=== PATIENT | male | born 1955 | race Caucasian/White ===

== ENCOUNTER → 2017-09-16 10:19 | Outpatient (CLI) | payer OTHER, SELFPAY ==
--- NOTE | 2017-09-16 | DI.CT.S_ITS ---
PROCEDURE: CT ABDOMEN PELVIS WO/W CON INDICATIONS: HYDRONEPHROSIS TECHNIQUE: Optional 5 mm thick noncontrast images acquired from the diaphragm to the symphysis pubis. After the administration of intravenous contrast, 5 mm thick images acquired from the diaphragm to the symphysis pubis after a 10-minute delay. 2 mm thick coronal and sagittal reformats were then performed of the kidneys and ureters. For radiation dose reduction, the following was used: automated exposure control, adjustment of mA and/or kV according to patient size. COMPARISON: [facility], CT, ABDOMEN/PELVIS WITH CONTRAST, 06/07/2017, 3:17. [facility], CT, CT ANGIO ABDOMEN PELVIS, 07/13/2017, 13:23. FINDINGS: Image quality: Excellent. Lung bases: Lung bases are clear. Heart size is normal. Atherosclerotic calcifications noted in the visualized coronary vasculature. Urinary system: Severe right-sided hydronephrosis is stable compared to 07/13/2017. Moderate to severe proximal right ureteral dilatation extending to level of the right common iliac aneurysm is stable compared to 07/13/17. Multiloculated fluid collection with enhancing periphery anterior to the lower pole of the right kidney and the proximal right ureter is not significantly changed in size or contour compared to 07/13/17 measuring approximately 7. 0 cm in maximum diameter in the current study of 27.2 cm previously).. No left-sided hydronephrosis. 6 mm nonobstructing stone in the lower pole of the left kidney is stable compared to 07/13/2017. Mild inflammatory stranding adjacent to the right kidney and proximal right ureter is stable in appearance compared to 07/13/17. There is normal bilateral renal enhancement. Bladder wall thickness is normal. No calcified bladder stones. Other solid organs: Liver is normal in size and enhancement. 1.1 cm cyst in the right lobe liver is stable. Gallbladder is within normal limits. Biliary system is non dilated. Pancreas enhances normally. Spleen is normal in size and enhancement. No adrenal nodules. Peritoneum and bowel: Small hiatal hernia noted. Bowel loops demonstrate normal wall thickness and caliber. No free fluid or air. The appendix is normal. Nodes and vessels: No retroperitoneal or mesenteric adenopathy by size criteria. Postprocedural changes compatible of prior aortoiliac stent graft placement redemonstrated. 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 No evidence of aneurysmal luminal opacification to indicate endoleak. Abdominal wall: Supraumbilical ventral midline hernias which contain loops of unremarkable appearing colon and small bowel are stable. Pelvis: No pathologic free pelvic fluid. No inguinal adenopathy. Large right inguinal hernia which contains unremarkable appearing loops of small bowel are stable compared to prior examinations. A small fat-containing left inguinal hernia stable. Bones: No suspicious bony lesions. No vertebral body compression fractures. Spine degenerative disc disease and facet arthropathy. IMPRESSION: 1. Stable examination compared to 07/13/2017. 2. Severe right-sided hydronephrosis related to large right common iliac artery aneurysm is not significantly changed. 3. Multiloculated fluid collection adjacent to the anterior margin of the lower pole the right kidney and the proximal right ureter not significantly changed in size or contour. Finding concerning for contained calyceal rupture. 4. Status post aortoiliac endograft placement. No evidence of endoleak. 5. 6 mm nonobstructing left renal stone. 7. Supraumbilical ventral hernias and left inguinal hernia containing unremarkable appearing loops of bowel are stable in appearance. Dictated by: Pam Moe MD, PhD on 09/16/2017 at 13:30 Approved by: Pam Moe MD, PhD on 09/16/2017 at 13:47
== END ==
PROVIDERS: PCP Nutritionist; Visit Provider Physician Assistant
DX: N13.30 Unspecified hydronephrosis (principal); I72.3 Aneurysm of iliac artery; N20.0 Calculus of kidney; K43.9 Ventral hernia without obstruction or gangrene
CPT/HCPCS: 74178; Q9967

== ENCOUNTER → 2018-10-17 09:01 | Outpatient (CLI) | payer OTHER, SELFPAY ==
--- NOTE | 2018-10-17 | DI.CT.S_ITS ---
PROCEDURE: CT ABDOMEN PELVIS WO CON INDICATIONS: Hydronephrosis TECHNIQUE: Noncontrast 5 mm thick sections acquired from the diaphragms to the symphysis. 5 mm coronal and sagittal reformats were then performed. For radiation dose reduction, the following was used: automated exposure control, adjustment of mA and/or kV according to patient size. COMPARISON: [facility], CT, CT ABDOMEN PELVIS WO/W CON, 09/16/2017, 11:02. FINDINGS: Image quality: Excellent. ABDOMEN: Lung bases: There is ill-defined groundglass reticular nodular density within the left lung base posteriorly. Heart size is normal. Calcification of the coronary vasculature. Solid organs: Liver is normal in size. Gallbladder is within normal limits. Pancreas is normal in contours. Spleen is normal in size. No adrenal nodules. Kidneys are normal in size, without hydronephrosis. There is a nonobstructing 5 mm calculus within the inferior pole right kidney. Peritoneum and bowel: Small hiatal hernia, increased from prior examination. Unenhanced bowel loops demonstrate normal wall thickness and caliber. No free fluid or air. Nodes and vessels: No retroperitoneal or mesenteric adenopathy by size criteria. There are iliac stent graft has been placed, as before. The distal aortic/right common iliac artery aneurysm has decreased in size, currently measuring 35 mm short axis. Miscellaneous: Small and large bowel containing anterior abdominal wall hernia measuring 53 mm is unchanged. PELVIS: Genitourinary: Bladder wall thickness is normal. Miscellaneous: A bowel containing right renal hernia is present, as before, and is incompletely visualized, measuring at least 80 mm diameter. Bones: No suspicious bony lesions. No vertebral body compression fractures. IMPRESSION: 1. Mild patchy opacity within the left posterior lung base, which may indicate a focal region of pneumonitis. Followup chest CT in 3 months is recommended to confirm resolution and to exclude underlying malignancy. 2. Small hiatal hernia. 3. Coronary artery disease. 4. Bowel containing anterior abdominal wall and right inguinal hernias without evidence of bowel strangulation, nor obstruction. 5. Resolved right hydronephrosis. Nonobstructing calculus within the inferior pole right kidney. 6. Decreasing size of aortoiliac aneurysm following stent graft placement. Dictated by: Jeniffer Armas M.D. on 10/17/2018 at 8:45 Approved by: Jeniffer Armas M.D. on 10/17/2018 at 8:59
--- NOTE | 2018-10-17 | DI.US.S_ITS ---
PROCEDURE: US RENAL COMPLETE INDICATIONS: HYDRONEPHROSIS TECHNIQUE: Real-time scanning was performed of the kidneys and bladder, with image documentation. COMPARISON: [facility], CT, CT ABDOMEN PELVIS WO/W CON, 09/16/2017, 11:02. [facility], CT, CT ABDOMEN PELVIS WO CON, 10/17/2018, 9:08. FINDINGS: Kidneys: Kidneys are normal in size. Right kidney measures 11.7 cm long; left kidney measures 12.6 cm long. Right renal cortical thickness is 1.3 cm; left renal cortical thickness is 1.2 cm. Renal cortical echotexture is normal. No nephrolithiasis. No suspicious solid mass lesions. Mild to moderate left-sided hydronephrosis is seen. Mild prominence in the right renal pelvis can be seen. There is a 2.2 cm cyst at the superior pole of left kidney. Bladder: Pre-void bladder volume is 332 mL. Post-void residual is 11 mL. Pre-void images demonstrate no intraluminal masses or stones. On pre-void images, both ureteral jets are noted with color Doppler interrogation. (Of note, ureteral jets may not be detectable in up to 25% of cases due to insufficient differences in specific gravity between ureteral and bladder urine). Miscellaneous: No free pelvic fluid. IMPRESSION: Mild to moderate left-sided hydronephrosis is seen. No shadowing stones are seen. Simple cyst at the superior pole of the left kidney. Dictated by: Sebas Dan M.D. on 10/17/2018 at 11:07 Approved by: Sebas Dan M.D. on 10/17/2018 at 11:09
== END ==
PROVIDERS: PCP Nutritionist; Visit Provider Nurse Practitioner Acute Care
DX: N13.2 Hydronephrosis with renal and ureteral calculous obstruction (principal); N28.1 Cyst of kidney, acquired; K44.9 Diaphragmatic hernia without obstruction or gangrene; K40.90 Unilateral inguinal hernia, without obstruction or gangrene, not specified as recurrent; K43.9 Ventral hernia without obstruction or gangrene; I71.4 Abdominal aortic aneurysm, without rupture; I25.10 Atherosclerotic heart disease of native coronary artery without angina pectoris
CPT/HCPCS: 74176; 76770

== ENCOUNTER → 2019-03-15 15:38 | Outpatient (CLI) | payer OTHER, SELFPAY ==
--- NOTE | 2019-03-15 | DI.RAD.S_ITS ---
PROCEDURE: XR CHEST 2V INDICATIONS: Unilateral inguinal hernia, without obstruction or gangrene, TECHNIQUE: 2 views of the chest were acquired. COMPARISON: [facility], , CHEST 2 VIEW, 08/10/2007, 12:30. FINDINGS: Surgical changes and devices: None. Lungs and pleura: Lungs are clear. No pleural effusions or pneumothorax. Mediastinum: Mediastinal contours are normal. Heart size is normal. Bones and chest wall: No suspicious bony abnormalities. Soft tissues appear unremarkable. IMPRESSION: No acute cardiopulmonary disease. Dictated by: Laura Rossi M.D. on 03/15/2019 at 17:16 Approved by: Laura Rossi M.D. on 03/15/2019 at 17:17
== END ==
PROVIDERS: PCP Nutritionist; Visit Provider Surgery
DX: K40.90 Unilateral inguinal hernia, without obstruction or gangrene, not specified as recurrent (principal)
CPT/HCPCS: 71046; 93005

== ENCOUNTER → 2019-09-26 11:41 | Outpatient (CLI) | payer OTHER, SELFPAY ==
--- NOTE | 2019-09-26 | DI.CT.S_ITS ---
PROCEDURE: CT ABDOMEN PELVIS WO CON INDICATIONS: AORTIC ANEUISM TECHNIQUE: Noncontrast 5 mm thick sections acquired from the diaphragms to the symphysis. 5 mm coronal and sagittal reformats were then performed. For radiation dose reduction, the following was used: automated exposure control, adjustment of mA and/or kV according to patient size. COMPARISON: [facility], CT, ABDOMEN/PELVIS WITH CONTRAST, 06/07/2017, 3:17. [facility], CT, CT ABDOMEN PELVIS WO CON, 10/17/2018, 9:08. FINDINGS: Image quality: Excellent. ABDOMEN: Lung bases: Lung bases are clear. Heart size is normal. Solid organs: Liver is normal in size. Gallbladder is partially contracted. Pancreas is normal in contours. Spleen is normal in size. No adrenal nodules. Kidneys are mildly asymmetric in size, smaller on the right than the left, without hydronephrosis or nephrolithiasis. Peritoneum and bowel: Unenhanced bowel loops demonstrate normal wall thickness and caliber. No free fluid or air. Nodes and vessels: No retroperitoneal or mesenteric adenopathy by size criteria. Aorta and inferior vena cava are normal in caliber after aortobiiliac bypass grafting.. Miscellaneous: There is a previously present supraumbilical midline ventral hernia through which a small amount in colon passes into the subcutaneous fat without evidence of incarceration or strangulation PELVIS: Genitourinary: Bladder wall thickness is normal. Miscellaneous: No inguinal hernias or adenopathy, resolution of a prior right sided inguinal hernia postoperatively. What appears to be a normal appendix at the right lower quadrant is seen. The iliac bypass graft from above bifurcates into an external and internal limb on the right but does not bifurcate on the left, extending to the anterior aspect of the external iliac arteries bilaterally (from each iliac branch). Bones: No suspicious bony lesions. No vertebral body compression fractures. IMPRESSION: Excellent postoperative appearance without anastomotic aneurysm found at the proximal or distal anastomosis sites, external and internal iliac arteries on the right and external iliac artery on the left. Resolution of the prior right inguinal hernia postoperatively. Persistence of a mild ventral hernia containing a portion of the transverse colon at the midline superiorly. The Dictated by: Jerald Bradford M.D. on 09/26/2019 at 13:53 Approved by: Jerald Bradford M.D. on 09/26/2019 at 14:17
== END ==
PROVIDERS: PCP Nutritionist; Referring Provider Surgery Vascular Surgery; Visit Provider Surgery Vascular Surgery
DX: I71.4 Abdominal aortic aneurysm, without rupture (principal); K43.9 Ventral hernia without obstruction or gangrene
CPT/HCPCS: 74176

== ENCOUNTER → 2020-11-12 13:01 | Outpatient (CLI) | payer OTHER, SELFPAY ==
--- NOTE | 2020-11-12 | DI.CT.S_ITS ---
PROCEDURE: CT ABDOMEN PELVIS WO CON INDICATIONS: Abdominal aortic aneurysm, without rupture TECHNIQUE: Noncontrast 5 mm thick sections acquired from the diaphragms to the symphysis. 5 mm coronal and sagittal reformats were then performed. For radiation dose reduction, the following was used: automated exposure control, adjustment of mA and/or kV according to patient size. COMPARISON: [facility], CT, CT ANGIO ABDOMEN PELVIS, 07/13/2017, 13:23. [facility], CT, CT ABDOMEN PELVIS WO CON, 09/26/2019, 12:07. FINDINGS: Image quality: Excellent. ABDOMEN: Lung bases: Lung bases are clear. Heart size is normal. Solid organs: Liver is normal in size. Small, stable cysts are present. Gallbladder is unremarkable . Pancreas is normal in contours. Spleen is normal in size. No adrenal nodules. Kidneys demonstrate scattered bilateral intrarenal nonobstructing calcifications. The right kidney is smaller than the left, chronic. There is a hyperdense 2.0 cm lesion arising from the upper pole of the left kidney. No significant change.. Peritoneum and bowel: Prominent diverticulosis of the sigmoid colon. Normal appendix. Normal stomach and small bowel loops. Nodes and vessels: An infrarenal aorta bi-iliac endograft is present with both internal and external right iliac branches. There is been decreased size of the hernia sac at the iliac bifurcation now measuring 1.1 cm in AP diameter, previously 1.7 cm. No periaortic fat stranding. No retroperitoneal or mesenteric adenopathy by size criteria. Aorta and inferior vena cava are normal in caliber. Miscellaneous: Complicated, wide necked, colon and small bowel containing supraumbilical ventral hernia. No fluid in the hernia sac. PELVIS: Genitourinary: Bladder wall thickness is normal. Mild prostatomegaly. Miscellaneous: Iliac vessels are normal caliber. Bones: No suspicious bony lesions. No vertebral body compression fractures. IMPRESSION: 1. Interval decrease in size of distal abdominal aortic aneurysm sac post endograft placement. 2. Normal common iliac vessel calibers. 3. Sigmoid diverticulosis. 4. Chronic left upper pole hyperdense renal cyst. 5. Scattered punctate nonobstructing intrarenal calculi bilaterally. 6. No change or evidence of bowel obstruction involving of complicated supraumbilical ventral hernia. Dictated by: Guillermina Paniagua M.D. on 11/12/2020 at 13:56 Approved by: Guillermina Paniagua M.D. on 11/12/2020 at 14:09
== END ==
PROVIDERS: PCP Nutritionist; Referring Provider Nurse Practitioner Acute Care; Visit Provider Nurse Practitioner Acute Care
DX: I71.4 Abdominal aortic aneurysm, without rupture (principal); K57.30 Diverticulosis of large intestine without perforation or abscess without bleeding; N28.1 Cyst of kidney, acquired; N20.0 Calculus of kidney; K43.9 Ventral hernia without obstruction or gangrene
CPT/HCPCS: 74176

== ENCOUNTER → 2021-06-19 09:06 | Outpatient (CLI) | payer OTHER, SELFPAY ==
--- NOTE | 2021-06-19 09:25 | DI.CT.S_ITS ---
PROCEDURE: CT ABDOMEN PELVIS WO CON INDICATIONS: Aortic aneurysm TECHNIQUE: Axial sections were acquired from the lung bases to the pubic symphysis. Coronal and sagittal reformats were performed. For radiation dose reduction, the following was used: automated exposure control, adjustment of mA and/or kV according to patient size. COMPARISON: [facility], CT, CT ABDOMEN PELVIS WO/W CON, 09/16/2017, 11:02. [facility], CT, CT ABDOMEN PELVIS WO CON, 11/12/2020, 13:10. FINDINGS: Image quality: Excellent. Lung bases: Mild scattered ground-glass opacity at the lung bases. No pleural effusion. Heart: No significant findings. Small hiatal hernia. URINARY: Right Kidney: No hydronephrosis. 1 or 2 small nonobstructing kidney stones. Exophytic left renal cyst measuring 2.1 cm, (), remotely 2.4 cm in 2018. The cyst measures 43 Hounsfield units and is mildly complex. Right Ureter: No hydroureter. Left Kidney: No hydronephrosis. 2 small nonobstructing kidney stones. Left Ureter: No hydroureter. Bladder: Normal wall thickness. No stones. ABDOMEN: Liver: Small cysts in the liver. Gallbladder: Unremarkable. Biliary ducts: Unremarkable. Pancreas: Unremarkable. Spleen: Unremarkable. Adrenal Glands: Unremarkable. Stomach and Bowel: Stomach, small bowel loops, and colon are unremarkable. Diverticulosis. No diverticulitis. The appendix is not dilated. Peritoneum: No abnormal intraperitoneal fluid. No free air. Ventral Wall: Ventral abdominal wall hernia containing small portions of small bowel and colon appears similar. The hernia neck measures approximately 6 cm. Abdominal Nodes: No enlarged retroperitoneal or mesenteric lymph nodes. Vessels: Descending thoracic aorta measures 3.1 cm. Proximal abdominal aorta measures 3.6 cm. Infrarenal aortoiliac stent graft repair. The anterior common iliac aneurysm sac measures 0.6 cm, (), previously 1 cm on 11/12/2020. PELVIS: Pelvic Organs: Unremarkable. Pelvic Nodes: Unremarkable. Miscellaneous: No definite inguinal hernias are seen. Bones: No compression fracture. IMPRESSION: 1. Aortoiliac stent graft repair. The aneurysm sac demonstrates further decrease and is essentially collapsed. 2. Small kidney stones. No hydronephrosis. 3. Ventral abdominal wall aneurysm. Small hiatal hernia. Dictated by: Mike Stallings M.D. on 06/19/2021 at 10:44 Approved by: Mike Stallings M.D. on 06/19/2021 at 10:56
== END ==
PROVIDERS: PCP Nurse Practitioner Acute Care; Referring Provider Nurse Practitioner Acute Care; Visit Provider Nurse Practitioner Acute Care
DX: I71.4 Abdominal aortic aneurysm, without rupture (principal); I72.3 Aneurysm of iliac artery; K44.9 Diaphragmatic hernia without obstruction or gangrene; N20.0 Calculus of kidney
CPT/HCPCS: 74176

== ENCOUNTER → 2022-08-18 12:05 | Outpatient (CLI) | payer OTHER, SELFPAY ==
--- NOTE | 2022-08-18 | DI.CT.S_ITS ---
PROCEDURE: CT ABDOMEN PELVIS WO CON INDICATIONS: Abdominal aortic aneurysm, without rupture, unspecified TECHNIQUE: Axial sections were acquired from the lung bases to the pubic symphysis. Coronal and sagittal reformats were performed. For radiation dose reduction, the following was used: automated exposure control, adjustment of mA and/or kV according to patient size. COMPARISON: [facility], CT, CT ABDOMEN PELVIS WO CON, 10/17/2018, 9:08. CT, CT ABDOMEN PELVIS WO/W CON, 09/16/2017, 11:02. CT, CT ANGIO ABDOMEN PELVIS, 07/13/2017, 13:23. [facility], CT, CT ABDOMEN PELVIS WO CON, 11/12/2020, 13:10. [facility], CT, CT ABDOMEN PELVIS WO CON, 09/26/2019, 12:07. [facility], CT, CT ABDOMEN PELVIS WO CON, 06/19/2021, 9:18. FINDINGS: Image quality: Excellent. Lung bases: Clustered ground-glass nodules in lower lobes bilaterally. Ground-glass infiltrates seen on the last exam have decreased. Heart: No significant findings. Small hiatal hernia. ABDOMEN: Liver: Normal in size. There are a few low-density nodules in liver, most likely cysts. Gallbladder: Unremarkable. Biliary ducts: Unremarkable. Pancreas: Unremarkable. Spleen: Unremarkable. Adrenal Glands: Unremarkable. Kidneys: Bilateral nonobstructive renal calculi are present. Trace renal pelviectasis. No obstructive renal stones are identified. There is a 2 cm exophytic nodule in the superior pole of the left kidney, probably a cyst. Stomach and Bowel: Stomach, small bowel loops, and colon are normal in caliber. Diverticulosis of the sigmoid and descending colon without acute diverticulitis. Peritoneum: No abnormal intraperitoneal fluid. No free air. Ventral Wall: There is a moderate-sized horn containing a small segment of small intestine and colon just above the umbilicus at midline. Abdominal Nodes: No enlarged retroperitoneal or mesenteric lymph nodes. Vessels: There is mild abdominal aortic aneurysm. The proximal abdominal aorta measures 3.5 x 3.7 cm. The mid abdominal aorta measures 2.9 x 2.7 cm. The distal abdominal aorta measures 2.8 x 2.8 cm. The right common iliac artery measures 2.5 cm. The left common iliac artery measures 1.7 cm There is a bifid intraluminal graft within the abdominal aorta and iliac arteries. PELVIS: Pelvic Organs: Prostate is enlarged. Bladder wall thickness is normal. Pelvic Nodes: Unremarkable. Miscellaneous: Right inguinal hernia repair. Small fat containing left inguinal hernia is noted. Bones: Unremarkable. IMPRESSION: 1. Stable abdominal aortic aneurysm and right common iliac artery aneurysm. There is a bifid intraluminal graft in the distal abdominal aorta. 2. Bilateral nonobstructive renal calculi. Trace renal pelviectasis are present bilaterally. No obstructive stones are identified. 3. Diverticulosis without acute diverticulitis. 4. Moderate-sized ventral hernia containing a short segment of small bowel and colon. 5. Small hiatal hernia. 6. Clustered ground-glass nodules in the lower lobes bilaterally, most likely infectious or inflammatory etiology. Dictated by: Laura Rossi M.D. on 08/19/2022 at 11:58 Approved by: Laura Rossi M.D. on 08/19/2022 at 12:13
== END ==
PROVIDERS: PCP Nurse Practitioner Acute Care; Referring Provider Surgery Vascular Surgery; Visit Provider Surgery Vascular Surgery
DX: I71.40 Abdominal aortic aneurysm, without rupture, unspecified (principal); I72.3 Aneurysm of iliac artery; N20.0 Calculus of kidney; K57.30 Diverticulosis of large intestine without perforation or abscess without bleeding; K43.9 Ventral hernia without obstruction or gangrene; K44.9 Diaphragmatic hernia without obstruction or gangrene; R91.8 Other nonspecific abnormal finding of lung field
CPT/HCPCS: 74176

== ENCOUNTER → 2023-09-30 13:43 | Outpatient (CLI) | payer OTHER, SELFPAY ==
--- NOTE | 2023-09-30 13:45 | DI.CT.S_ITS ---
PROCEDURE: CT ABDOMEN PELVIS WO CON INDICATIONS: Encounter for screening for malignant neoplasm TECHNIQUE: Axial sections were acquired from the lung bases to the pubic symphysis. Coronal and sagittal reformats were performed. For radiation dose reduction, the following was used: automated exposure control, adjustment of mA and/or kV according to patient size. COMPARISON: [facility], CT, CT ABDOMEN PELVIS WO CON, 08/18/2022, 12:31. FINDINGS: Image quality: Diagnostic. Lower Chest: Separately dictated. ABDOMEN: Liver: No contour-deforming solid mass. Hepatic cysts. Gallbladder: No radiopaque gallstones or wall thickening. Biliary ducts: No biliary dilation. Pancreas: No ductal dilation. Spleen: Size is within normal limits. Adrenal Glands: No adrenal nodules. Kidneys: Stable cystic lesion on the superior pole of the left kidney. Moderate burden of punctate, bilateral nonobstructing nephrolithiasis. Stomach and Bowel: Normal colonic caliber, without significant wall thickening. Colonic diverticulosis without evidence of diverticulitis. Normal appendix. Peritoneum: No abnormal intraperitoneal fluid. No free air. Ventral Wall: Wide-mouth ventral wall hernia containing multiple loops of small bowel or bowel wall. Abdominal Nodes: No enlarged retroperitoneal or mesenteric lymph nodes. Vessels: Infrarenal aortic aneurysm, status post EVAR. The sac measures 3.4 cm, unchanged using similar measuring techniques. PELVIS: Pelvic Organs: Unremarkable. Bladder: Unremarkable. Pelvic Nodes: Unremarkable. Miscellaneous: No inguinal hernias are seen. Bones: Unremarkable. IMPRESSION: Infrarenal aortic aneurysm, status post EVAR. The sac is unchanged from prior. Wide-mouth ventral hernia containing loops of nonobstructed small and large bowel. Colonic diverticulosis without evidence of diverticulitis. Moderate burden of bilateral, nonobstructing nephrolithiasis. Dictated by: Rj Serrato M.D. on 09/30/2023 at 15:33 Approved by: Rj Serrato M.D. on 09/30/2023 at 15:36
--- NOTE | 2023-09-30 13:45 | DI.CT.S_ITS ---
PROCEDURE: CT LUNG LOW DOSE SCREENING INDICATIONS: Encounter for screening for malignant neoplasm TECHNIQUE: Noncontrast 2.0-2.5 mm thick sections acquired from the pulmonary apices to the posterior costophrenic angles. 7 mm thick axial MIP, and 5 mm coronal and sagittal reformats were then acquired. For radiation dose reduction, the following was used: automated exposure control, adjustment of mA and/or kV according to patient size. COMPARISON: [facility], CT, CT ABDOMEN PELVIS WO CON, 09/30/2023, 13:54. FINDINGS: Image quality: Diagnostic. Lower Neck: No enlarged lymph nodes. Thyroid: No thyroid nodules which require sonographic follow up, per consensus guidelines. Axillae: No enlarged lymph nodes. Chest Wall: Unremarkable. Bones: Unremarkable. Lungs and Pleura: No pneumothorax or pleural effusions. Moderate centrilobular emphysema. 5 mm solid nodule, right upper lobe (series 3, image 42). Biapical scarring. A few subsegmental bronchial secretions are present. Heart: Heart size is normal. No pericardial effusion. Three-vessel coronary calcifications. Thoracic Vessels: Aneurysmal ascending aorta measuring 4.2 cm. Mediastinum and Apple: No enlarged lymph nodes. Esophagus: No wall thickening. Small hiatal hernia. Upper Abdomen: Stable hypoattenuating liver and hepatic lesions. IMPRESSION: No suspicious pulmonary nodules. LUNG-RADS 2; continued annual screening, if eligible. Clinically Significant Non-pulmonary Findings: -Marked coronary artery calcifications for age. Correlate with risk factors and advise counseling. -Mild aneurysmal dilation of the ascending aorta. Attention on follow-up. Dictated by: Rj Serrato M.D. on 09/30/2023 at 15:30 Approved by: Rj Serrato M.D. on 09/30/2023 at 15:33
== END ==
PROVIDERS: PCP Nurse Practitioner Acute Care; Referring Provider Surgery Vascular Surgery; Visit Provider Surgery Vascular Surgery
DX: Z12.2 Encounter for screening for malignant neoplasm of respiratory organs (principal); F17.210 Nicotine dependence, cigarettes, uncomplicated; I71.21 Aneurysm of the ascending aorta, without rupture; I71.43 Infrarenal abdominal aortic aneurysm, without rupture; I25.10 Atherosclerotic heart disease of native coronary artery without angina pectoris; K57.90 Diverticulosis of intestine, part unspecified, without perforation or abscess without bleeding; K43.9 Ventral hernia without obstruction or gangrene; N20.0 Calculus of kidney
CPT/HCPCS: 71271; 74176